=== PATIENT | male | born 1960 ===

== ENCOUNTER 2019-12-14 17:03 | Emergency (ER) | payer BC, OTHER ==
[~2019-12-14 17:03] MED LIST: Iopamidol-370 76% 500 ML 1 ML ONE
[2019-12-14 18:14] LABS: #Eosinphils 0.1 thou/uL (0.0-0.7); #Lymphocytes 0.8 thou/uL (1.20-3.40); #Monocytes 0.6 thou/uL (0.11-0.59); #Neutrophils 3.2 thou/uL (1.40-6.50); %Basophils 0.8 % (0.0-1.0); %Eosinophils 2.6 % (0.0-10.0); %Lymphocytes 16.4 % (21.0-51.0); %Monocytes 12.6 % (0.0-10.0); %Neutrophils 67.7 % (42.0-75.0); Hemoglobin 13.6 g/dL (14.0-18.0); Mean Corpuscular HGB CONC 31.3 g/dL (32.0-36.0); Mean Corpuscular Volume 86.4 fL (78.0-98.0); Mean Platelet Volume 7.2 fL (7.4-10.4); Platelet Count 465 thou/uL (130-400); RBC Distribution Width 11.9 % (11.5-14.5); Red Blood Cell (RBC) Count 5.04 mill/uL (4.70-6.10); White Blood Cell (WBC) Count 4.7 thou/uL (4.8-10.8)
--- NOTE | 2019-12-14 18:16 | RAD ---
Exam: Chest one view HISTORY:Cough. Positive COVID 19 patient Comparison: 12/08/2019 FINDINGS: Cardiac silhouette: Normal Aorta: Unremarkable Pulmonary vessels: Normal Costophrenic angles: Clear LUNGS: Worsening interstitial and alveolar opacities. Pneumothorax: None Osseous abnormalities: None IMPRESSION: Worsening interstitial and alveolar opacities. Progression of COVID pneumonia.
[2019-12-14 18:40] LABS: ALT (SGPT) 86 U/L (8-55); AST (SGOT) 75 U/L (5-34); Albumin 3.1 g/dL (3.5-5.0); Alkaline Phosphatase 206 U/L (40-110); Anion Gap 11 mmol/L (10-20); BUN (Urea Nitrogen) 9 mg/dL (8.4-25.7); Bilirubin, Total 0.4 mg/dL (0.2-1.2); Calc. Creatinine Clearance 0 mL/min (70-130); Calcium 8.1 mg/dL (7.8-10.44); Carbon Dioxide 27 mmol/L (22-29); Chloride 103 mmol/L (98-107); Estimated GFR-MDRD Greater than 90; Glucose 126 mg/dL (70-105); Potassium 4.2 mmol/L (3.5-5.1); Protein, Total 6.1 g/dL (6.0-8.3); Sodium 137 mmol/L (136-145)
--- NOTE | 2019-12-14 19:58 | CT ---
Exam: CT angiogram of the chest HISTORY: Positive COVID patient. Cough. Malaise. Fatigue. COMPARISON: None TECHNIQUE: CT angiogram of the chest is performed in the axial plane. Three-dimensional reformatted i mages are submitted for interpretation FINDINGS: Mediastinum: No mass, lymphadenopathy or hematoma. Enlarged right hilar lymph node measures 1.8 x 1.9 cm. HEART: Normal size. No significant pericardial fluid. Aorta: No aneurysm or dissection Upper solid abdominal viscera: No abnormality enhancement. Trachea and central bronchi: Patent Pleural spaces: No effusion Lung parenchyma: Predominate peripheral distribution of lung parenchymal opacities. Distribution is c ompatible with patient's known positive COVID 19 status. Pneumothorax: None Osseous structures: No lytic or blastic lesions Pulmonary arteries: Adequate contrast opacification pulmonary arterial system to the level of segment al arteries. No filling defect to suggest pulmonary embolism IMPRESSION: 1. Peripheral lung parenchymal opacities, keeping with the patient's history of known COVID 19. Multi focal COVID 19 pneumonia. 2. No evidence of pulmonary artery embolism to the level of the segmental arteries.
== END 2019-12-14 20:51 | disposition home or self-care (01) ==
LOC: ERS 17:03
DX: U07.1 COVID-19 (principal); J12.89 Other viral pneumonia
CPT/HCPCS: 36415; 71045; 71275; 80053; 83605; 84484; 85025; 85379; 93005; Q9967